=== PATIENT | male | born 1940 | race Caucasian/White ===

== ENCOUNTER 2016-03-25 06:29 | Day surgery (SDC) | payer MEDICARE ==
[~2016-03-25] VITALS: Ht 172.7 cm; Wt 84.3 kg
[~2016-03-25 06:29] MED LIST: ASPI81 PO; ATOR20TA42 PO; FENO50TA PO; HYZA100T2 PO; PRAD150C PO; TOPR100T15 PO
[2016-03-25 06:59] VITALS: BP 154/84; PULSE 63; RESP 16; O2SAT 97
[2016-03-25] MEDS ORDERED: ATOR20TA15 PO (07:05)
[2016-03-25] MEDS ORDERED: MONT10TA4 PO (07:05)
[2016-03-25] MEDS ORDERED: ASPI325T27 PO (07:05)
[2016-03-25] MEDS ORDERED: METO100T9 PO (07:05)
[2016-03-25] MEDS ORDERED: LOSA100T2 PO (07:05)
[2016-03-25] MEDS ORDERED: LEVOTAB PO (07:05)
[2016-03-25] MEDS ORDERED: METF1000 PO (07:05)
[2016-03-25] MEDS ORDERED: LATA0.002 EACH EYE (07:05)
[2016-03-25] MEDS ORDERED: FENO50TA PO (07:05)
[2016-03-25] MEDS ORDERED: INSULIN HUMAN REGULAR 1,000 UNITS/10 ML VIAL SQ PRN (07:15)
[2016-03-25] MEDS ORDERED: POVIDONE IODINE 5% (ANTISEPSIS KIT) 4 APPLICATIONS EACH NARE SCH (07:15)
[2016-03-25] MEDS ORDERED: METOPROLOL TARTRATE 25 MG TAB PO PRN (07:15)
[2016-03-25] MEDS ORDERED: ceFAZolin 2 GM PREMIX 50 ML IV SCH ×2 (07:15→14:00)
[2016-03-25] MEDS ORDERED: MUPIROCIN 2% OINT 1 APPLIC/GM SYR NASAL SCH (07:15)
[2016-03-25] MEDS ORDERED: SODIUM CHLORID 0.9% 500 ML IV SCH (07:15)
[2016-03-25] MEDS ORDERED: CHLORHEXIDINE GLUCONATE 2 % 1 PACK (2 CLOTHS) TOP SCH (07:15)
[2016-03-25] MEDS ORDERED: NS 1000 ML IV SCH (07:15)
[2016-03-25] MEDS ORDERED: VANCOMYCIN 1000 MG/NS 250 ML IV SCH ×2 (07:15)
[2016-03-25] MEDS ORDERED: LACTATED RINGER'S 1000 ML IV SCH (07:15)
[2016-03-25 07:16] LABS: AUTOMATED NEUTROPHIL # 4.4 TH/MM3 (1.8-7.7); BASOPHIL # 0.1 TH/MM3 (0-0.2); BASOPHIL % 0.8 % (0.0-2.0); EOSINOPHIL # 0.2 TH/MM3 (0-0.4); EOSINOPHIL % 3.6 % (0.0-4.0); HEMATOCRIT 47.9 % (39.0-51.0); HEMO FLAGS DIFF FINAL; LYMPH % 22.6 % (9.0-44.0); LYMPHOCYTE # 1.6 TH/MM3 (1.0-4.8); MEAN CELL VOLUME 85.3 FL (80.0-100.0); MEAN CORPUSCULAR HEMOGLOBIN 29.6 PG (27.0-34.0); MEAN CORPUSCULAR HGB CONC 34.7 % (32.0-36.0); PLATELET COUNT 138 TH/MM3 (150-450); RED BLOOD COUNT 5.62 MIL/MM3 (4.50-5.90); RED CELL DISTRIBUTION WIDTH 14.4 % (11.6-17.2); WHITE BLOOD COUNT 6.9 TH/MM3 (4.0-11.0)
[2016-03-25 07:26] LABS: APTT (PATIENT) 27.8 SEC (24.3-30.1)
[2016-03-25 07:45] LABS: BICARBONATE 27.1 MEQ/L (21.0-32.0); POTASSIUM 3.6 MEQ/L (3.5-5.1)
[2016-03-25] MEDS ORDERED: VANCOMYCIN 500 MG VIAL ONE (07:48)
[2016-03-25] MEDS ORDERED: LIDOCAINE HCL 2% 50 ML VIAL ONE (07:49)
--- NOTE | 2016-03-25 08:24 | PD.CARD ---
PPM GENERATOR REPLACEMENT PROCEDURE DATE: Mar 25, 2016 PPM GENERATOR REPLACEMENT PROC PROCEDURE PERFORMED Permanent pacemaker removal, permanent pacemaker replacement, pocket revision. Mr. Aviles is a 75 -year-old male with history of with symptomatic bradycardia, previous pacer inserted in 2008, P[facility], admitted for generator replacement. The risks, the nature and the benefit of the procedure were clearly stated to him. The risks include pneumothorax, cardiac perforation, stroke and even . The patient understood and agreed to proceed. PROCEDURE After written informed consent was obtained, the patient was brought to the EP lab where was prepped and draped in the sterile fashion. Conscious sedation was initiated using intravenous Versed and introducer intravenous fentanyl. Once sedation was verified, the left infraclavicular area over the generator was anesthetized with 2% Xylocaine. Using a #11 scalpel, a 3 centimeter incision was made over the existing generator. Dissection was then taken down to deep fascial layer using Bovie cautery and blunt dissection. Once exposed, the generator was removed from the pocket. The pocket was expanded. Scar tissue was removed around the leads. Then, the leads were disconnected and tested. At that point, the pocket was copiously irrigated using antibiotic solution. The leads were connected to the new generator and placed into the pocket. The pacemaker was interrogated. He was A-sensing, V-pacing. I did proceed with wound closure. The deep fascial layer was approximated with 2-0 Vicryl suture in a continuous fashion. The subcutaneous layer was approximated with 2-0 Vicryl suture in a continuous fashion. Dermabond adhesive was applied to the wound followed by a sterile pressure dressing. There was no complication. The patient tolerated procedure. Blood loss minimal. EXPLANTED HARDWARE The explanted permanent pacemaker is a [employer]. Model # 5826 serial number [id number]. For information about the existing leads, please refer to previous dictation. IMPLANTED HARDWARE The implanted permanent pacemaker is a [employer] model number [id number], serial number [id number]. THRESHOLDS The right atrial pacing threshold in bipolar mode was 1.0 volt at 0.5 milliseconds. Lead impedance 460 ohms and P wave at 3.1 millivolts. The right ventricular pacing threshold in bipolar mode was 0.75 volts at 0.5 milliseconds. Lead impedance 550 ohms. R wave at 7.9mv. SETTINGS The device is set in a DDDR 60. Upper limit 120 beats per minute. Hysteresis and mode switch are on. CONCLUSIONS Successful permanent pacemaker removal, permanent pacemaker implantation, pocket revision. COMMENT AND RECOMMENDATIONS The patient will be transferred to the telemetry unit. He will be observed. The patient will be discharged home later on today. Simeon Torres MD Mar 25, 2016 08:24
[2016-03-25] MEDS ORDERED: HYDR-3288 PO (08:29)
[2016-03-25] MEDS ORDERED: CEPH-460 PO (08:29)
[2016-03-25] MEDS ORDERED: ACETAMINOPHEN/CODEINE 300 MG/30 MG TAB PO PRN ×2 (08:30)
[2016-03-25] MEDS ORDERED: SODIUM CHLORIDE 0.9% FLUSH 5 ML FLUSH IVF PRN (08:30)
[2016-03-25] MEDS ORDERED: ONDANSETRON HCL 4 MG/2 ML VIAL IV PRN (08:30)
[2016-03-25] MEDS ORDERED: PROPOFOL 200 MG/20 ML AMP IV ONE (08:45)
[2016-03-25] MEDS ORDERED: SODIUM CHLORIDE 0.9% FLUSH 5 ML FLUSH IVF SCH (09:00)
--- NOTE | 2016-03-25 09:37 | EKG ---
Date Performed: 03/25/2016 Time Performed: 07:09:00 PTAGE: 75 years EKG: Sinus bradycardia rSr'(V1) - probable normal variant Borderline ECG PREVIOUS TRACING : 09/13/2011 15.12 DOCTOR: Compa White Interpretating Date/Time 03/25/2016 09:36:14
== END 2016-03-25 11:35 | disposition home or self-care (01) ==
LOC: HDOC 06:29 → HDIC 06:30 → HDOC 11:35
PROVIDERS: ATTEND Internal Medicine Interventional Cardiology
DX: Z45.010 Encounter for checking and testing of cardiac pacemaker pulse generator [battery] (principal); I49.5 Sick sinus syndrome; I48.91 Unspecified atrial fibrillation; I48.92 Unspecified atrial flutter; I47.1 Supraventricular tachycardia; I34.0 Nonrheumatic mitral (valve) insufficiency; D69.6 Thrombocytopenia, unspecified; I07.1 Rheumatic tricuspid insufficiency; I73.9 Peripheral vascular disease, unspecified; I13.10 Hypertensive heart and chronic kidney disease without heart failure, with stage 1 through stage 4 chronic kidney disease, or unspecified chronic kidney disease; N18.3 Chronic kidney disease, stage 3 (moderate); E11.9 Type 2 diabetes mellitus without complications; J45.909 Unspecified asthma, uncomplicated; Z79.84 Long term (current) use of oral hypoglycemic drugs; Z01.818 Encounter for other preprocedural examination
CPT/HCPCS: 33228; 80048; 85025; 85610; 85730; 86850; 86900; 86901; 93005; C1785; J3010; J3370